=== PATIENT | male | born 1970 | race Caucasian/White ===

== ENCOUNTER 2016-12-23 10:35 | Emergency (ER) | payer OTHER ==
[2016-12-23] MEDS: Sodium Chloride 0.9% 1,000 ML PRIMARY IV ONE ×2 (10:42→15:10)
--- NOTE | 2016-12-23 11:27 | PDOC ---
Dizziness HPI - General Chief Complaint: Neurological Complaints Stated Complaint: CONFUSION, FALLING, SLURRED SPEECH Date Seen by Provider: 12/23/16 Time Seen by Provider: 11:22 Source: POSITIVE: Patient, Spouse Exam Limitations: POSITIVE: No limitations Nurse's Notes Reviewed & Considered: Yes - History of Present Illness Initial Comments: This is a 46-year-old male who presents to the emergency department with his with a history of increasing troubles with confusion and falls that initially started in July or August, but have become much more frequent recently. notes that he's had some intermittent problems slurred speech, most recently last night. With regards to the confusion, it can be names, current events, sometimes directions. He has also had some intermittent nausea and vomiting. No abdominal pain. He does have intermittent headaches. No fevers, or chills, but his notes he has had the heat up to 80 recently in the house. - Patient Home Medications Home Medications: Home Medications Ibuprofen [Motrin Tab] 400 mg PO Q4H PRN 06/10/15 Simvastatin 20 mg PO BEDTIME 12/23/16 - Patient Allergies Allergies/Adverse Reactions: Allergies Allergy/AdvReac Type Severity Reaction Status Date / Time No Known Allergies Allergy Verified 12/23/16 11:05 Past Medical History - heen HEENT History: Denies History Cardiovascular History: Denies History Respiratory History: Denies History Gastrointestinal History: Denies History Genitourinary History: Denies History Endocrine History: Denies History Musculoskeletal History: Other (please comment) Prosthesis or Implant: No Additional Musculoskeletal History: L KNEE SURGERY X 2, R X 1. L4 SURGEY. R THUMB SURGERY Neurological History: Denies History Blood Disorders: Denies History Psychiatric History: Denies History History of Sexually Transmitted Diseases: No Cancer History: Denies History History of MDRO: No History of Other Communicable Diseases: No Do you dip or chew tobacco: Yes (1 can per day) Alcohol Use: Occasionally Substance Use Type: None Previous Surgical History: Yes Type / Date of Surgery: L KNEE, R KNEE, THUMB. BACK Anesthesia Reactions: No Malignant Hyperthermia: No Significant Family History: No pertinent family hx Past Medical History Reviewed: Reviewed - Changes Made ROS - Limitations ROS Limitations: No Limitations Constitution: DENIES: Chills, Fever Cardiovascular: DENIES: Chest Pain, Edema Respiratory: REPORTS: Cough Non Productive. DENIES: Shortness Of Breath Neurological: REPORTS: Confusion, Headache, Dizziness, Difficulty Walking. DENIES: Fainting Gastrointestinal: DENIES: Abdominal Pain, Nausea, Vomitting Endocrine: REPORTS: Fatigue Musculoskeletal: DENIES: Muscle Aches Genitourinary: REPORTS: Difficulty Urinating, Other (Increased urinary frequency , and nocturia.). DENIES: Dysuria, Flank Pain, Hematuria Eyes: REPORTS: Other (Eye burning last night.) ENT: REPORTS: Congestion, Nasal Drainage. DENIES: Sore Throat Skin: DENIES: Rash Psychiatric: POSITIVE: Confusion Dizziness PE - General Appearance General Appearance: POSITIVE: No Acute Distress, Alert - HEENT HEENT: POSITIVE: PERRL, EOMI. NEGATIVE: Scleral Icterus - Neck Neck: POSITIVE: Supple, Other (Mild tenderness to palpation right cervical paraspinous muscles). NEGATIVE: Meningismus - Respiratory Respiratory: POSITIVE: No Respiratory Distress, Breath Sounds Normal. NEGATIVE : Wheezes, Rales, Rhonchi - Cardiovascular Cardiovascular: POSITIVE: Regular Rate & Rhythm, No Murmur, No Gallop, Heart Sounds Normal - Abdomen Additional Abdominal Details: Abdomen soft, nontender, nondistended, with no hepatomegaly. Active bowel sounds all 4 quadrants. No bruits. - Skin Skin: POSITIVE: Intact, Warm, Dry, No Rash - Neuro/Psych Neuro/Psych: POSITIVE: Alert, Affect Appropriate, Mood Appropriate, Normal Speech Cranial Nerves: POSITIVE: No Evidence of Acute CVA Dizziness Progress - Results Reviewed by me Xrays/CTs/US Reviewed by me: Yes Discussed with Radiologist: Yes Radiology Findings: Subacute, bilateral, large subdural hematomas. Lab Results Reviewed: Yes Lab Results:: Laboratory Results 12/23/16 12/23/16 Range/Units 11:35 11:44 WBC 7.88 (4.8-10.8) 10^3/uL RBC 5.19 (4.70-6.10) 10^6/uL Hgb 15.0 (14.0-18.0) g/dL Hct 43.6 (42.0-52.0) % MCV 84.0 (80-90) FL MCH 28.9 (27-31) PG MCHC 34.4 (33-37) g/dL RDW Std Deviation 41.2 (39-50) fL RDW Coeff of [place] 13.5 (11.5-14.5) % Plt Count 580 H (140-350) 10*3/uL MPV 8.2 (7.4-12.2) FL Immature Gran % (Auto) 0.3 (0-5) % Neut % (Auto) 70.4 (50-80) % Lymph % (Auto) 21.2 (10-50) % [place] % (Auto) 7.0 (5-15) % Eos % (Auto) 0.8 (0-8) % Baso % (Auto) 0.3 (0-1) % Immature Gran # (Auto) 0.02 10*3/UL Neut # (Auto) 5.56 10*3/UL Lymph # (Auto) 1.67 10*3/uL [place] # (Auto) 0.55 (0.3-0.8) 10*3/UL Eos # (Auto) 0.06 10*3/UL Baso # (Auto) 0.02 10*3/UL WBC Morphology Comment Normal morphology (NORM) Plt Morphology Comment Normal morphology (NORM) RBC Morph Comment Normal morphology (NORM) Sodium 137 (135-145) meq/L Potassium 4.1 (3.8-5.2) meq/L Chloride 103 (98-112) meq/L Carbon Dioxide 23 (23-33) meq/L Anion Gap 11 (5-20) BUN 8 (7-22) mg/dL Creatinine 0.9 (0.70-1.50) mg/dL Estimated GFR > 60 (>60 ml/min/1.73m(2)) BUN/Creatinine Ratio 8.88 (6-20) Glucose 85 (78-110) mg/dL Calculated Osmolality 280.0 (267-292) mOsm/kg Calcium 9.7 (8.7-10.7) mg/dL Total Bilirubin 0.7 (0.3-1.2) mg/dL AST 24 (21-57) IU/L ALT 26 (21-72) IU/L Alkaline Phosphatase 126 (38-126) IU/L Total Protein 8.0 (6.1-8.0) g/dL Albumin 4.6 (3.5-4.8) g/dL Globulin 3.3 (2.50-4.10) g/dL Albumin/Globulin Ratio 1.30 (1.3-2.0) mg/g Ur Collection Type Clean catch urine Urine Color Yellow Urine Clarity Clear (CLEAR) Urine pH 8.0 (5.0-8.5) Ur Specific [place] 1.010 (1.005-1.030) Urine Protein Negative (NEG) mg/dl Urine Glucose (UA) Negative (NEG) mg/dL Urine Ketones 15 (NEG) Urine Occult Blood Negative (NEG) Urine Nitrate Negative (NEG) Urine Bilirubin Negative (NEG) Urine Urobilinogen 0.2 (0.2) mg/dL Ur Leukocyte Esterase Negative (NEG) Urine RBC 0 (NONE) /hpf Urine WBC 0 (NONE) Ur Squamous Epith Cells None (NONE) Ur Renal Epithelial Cell None (NONE) Urine Crystals None Urine Bacteria None (NONE) Urine Casts None Urine Mucus None (NONE) Urine Trichomonas None (NONE) Urine Yeast None (NONE) - Patient's Progress Pain Medication Addressed: POSITIVE: No Re-Examine Time:: 12:38 Re-Examine Comment: Repeated neurologic exam due to unexpected subdural hematomas on CT. His neurologic exam, including cerebellar function by finger nose finger as well as strength exam and cranial nerves are all intact. He still does have some mild nystagmus on extremes of gaze on extraocular movements. Status: POSITIVE: Unchanged MDM / ED Course: Emergency room course: After initial evaluation, labs were drawn, CT of his head was performed. Urinalysis was obtained. His laboratory results, including CBC and metabolic panel, were normal. Urinalysis was normal. CT of his head reveals large, bilateral subcutaneous hematomas. I did return to discuss the results with the patient and his , I repeated my neurologic exam and the only obvious abnormal findings on full neurologic exam were some horizontal nystagmus on extremes of gaze and he did seem to have some troubles with understanding certain commands, particularly when asked to spread his fingers against resistance. Strength exam is intact. Cranial nerves are intact. I did since we discussed the case with Dr. Delarosa, neurosurgeon Matt. He did review the CTs which were pushed and agreed with the patient need to be transferred for further workup on why these occurred and have surgical drainage of these collections of blood. This was discussed with the patient and his . He'll be transferred. Patient Care Time - Estimated PCT Patient Care Time (In Minutes): 30 Vital Signs - Recent Vital Signs Vital Signs: Vital Signs (Last 8 hours) Temp Pulse Resp BP Pulse Ox 12/23/16 10:35 98.2 F 56 L 16 129/85 97 Discharge Clinical Impression: Traumatic subdural hemorrhage without loss of consciousness Discharge Disposition: Transferred to Tertiary Care Facility Condition: Stable Date Decision to Transfer to Another Facility: 12/23/16 Time Decision to Transfer to Another Facility: 12:44
[2016-12-23] MEDS ORDERED: NORMAL SALINE 10 ML SYRINGE FLUSH IVP PRN (11:33)
[2016-12-23 11:37] VITALS: RESP 16
[2016-12-23 11:38] LABS: BASOPHILS # (AUTO) 0.02 10*3/UL; BASOPHILS % (AUTO) 0.3 % (0-1); EOSINOPHILS # (AUTO) 0.06 10*3/UL; EOSINOPHILS % (AUTO) 0.8 % (0-8); HEMATOCRIT 43.6 % (42.0-52.0); LYMPHOCYTES # (AUTO) 1.67 10*3/uL; MEAN CORPUSCULAR HEMOGLOBIN 28.9 PG (27-31); MEAN CORPUSCULAR HGB CONC 34.4 g/dL (33-37); MEAN PLATELET VOLUME 8.2 FL (7.4-12.2); MONOCYTES # (AUTO) 0.55 10*3/UL (0.3-0.8); NEUTROPHILS # (AUTO) 5.56 10*3/UL; NEUTROPHILS % (AUTO) 70.4 % (50-80); RED BLOOD COUNT 5.19 10^6/uL (4.70-6.10)
[2016-12-23 11:43] LABS: BLOOD UREA NITROGEN 8 mg/dL (7-22); BUN/CREATININE RATIO 8.88 (6-20); CALCIUM 9.7 mg/dL (8.7-10.7); EST GLOMERULAR FILTRATION > 60 (>60 ml/min/1.73m(2)); SERUM ALBUMIN 4.6 g/dL (3.5-4.8)
[2016-12-23 11:49] LABS: WBC MORPHOLOGY COMMENT NORMAL MORPHOLOGY (NORM)
[2016-12-23 11:50] LABS: PLATELET MORPHOLOGY COMMENT NORMAL MORPHOLOGY (NORM); RBC MORPHOLOGY COMMENT NORMAL MORPHOLOGY (NORM)
[2016-12-23 12:07] LABS: BILIRUBIN,URINE NEGATIVE (NEG); COLOR,URINE YELLOW; GLUCOSE, URINE (UA) NEGATIVE (NEG); NITRATE,URINE NEGATIVE (NEG); OCCULT BLOOD,URINE NEGATIVE (NEG); PROTEIN,URINE NEGATIVE (NEG); UROBILINOGEN,URINE 0.2 mg/dL (0.2)
--- NOTE | 2016-12-23 12:11 | DI ---
CT HEAD SCAN WITHOUT IV CONTRAST, 12/23/2016 11:34 AM : Clinical History: Headaches. Confusion. Previous Exam: None at this facility. Scans are obtained from the foramen magnum to the vertex without IV contrast. The fourth ventricle is of normal size, shape, position and contour. Both lateral ventricles and the third ventricle are compressed and shifted from right to left by approximately 3 mm secondary to bila teral subacute extracerebral hematomas. The mantle thickness on the right-sided is approximately 20 m m and on the left side is 17 mm. Both of these mantles have a lenticular configuration more typical o f epidural hematomas, but the extending almost the entire length between the frontal lobe to the post erior parietal lobe in a fashion usually seen with subdural hematomas. There is marked effacement of the cortical sulci bilaterally secondary to these extracerebral mantles. There is no intracranial hem orrhagic focus. Bone window evaluation is normal. There is mucosal thickening of the right maxillary sinus and both maxillary sinuses have air-fluid levels suggesting acute bilateral maxillary sinusitis . READIN. There are bilateral large extracerebral hematomas that are slightly lower in density than the kamari rounding brain parenchyma consistent with subacute hematomas. These may be very large epidural hemato ma is in view of the lentiform configuration. There is a midline shift from right to left by 3 mm. Osmany th lateral ventricles and the third ventricle are effaced. 2. Air-fluid levels are present in both maxillary sinuses suggesting acute bilateral maxillary sinus itis.
[2016-12-23 12:16] LABS: CLARITY,URINE CLEAR (CLEAR)
[2016-12-23 12:17] LABS: RBC,URINE 0 /hpf; URINE SAMPLE TYPE CLEAN CATCH URINE; WBC,URINE 0
[2016-12-23 12:52] VITALS: TEMP 97.3
[2016-12-23] MEDS ORDERED: Sodium Chloride 0.9% 1,000 ML ONE (18:16)
== END 2016-12-23 13:00 | disposition short-term general hospital (02) ==
LOC: ER 10:35
DX: S06.5X0A Traumatic subdural hemorrhage without loss of consciousness, initial encounter (principal); R41.0 Disorientation, unspecified; R11.2 Nausea with vomiting, unspecified; R51 Headache; R05 Cough; W18.39XA Other fall on same level, initial encounter
CPT/HCPCS: 70450; 80053; 81001; 85025; 85610; 85730; 99283; J7030